=== PATIENT | female | born 1965 ===

== ENCOUNTER 2020-10-24 06:06 | Outpatient (CLI) | payer OTHER ==
[~2020-10-24 06:06] MED LIST: D3 + K2 DOTS 11 EACH PO
[2020-10-24] MEDS ORDERED: ULTRAM50 MG PO (11:48)
== END 2020-10-24 15:00 | disposition home or self-care (01) ==
LOC: LAB 06:06
PROVIDERS: ATTEND Surgery
DX: Z20.828 Contact with and (suspected) exposure to other viral communicable diseases (principal)

== ENCOUNTER 2020-10-24 06:25 | Day surgery (SDC) | payer OTHER ==
[2020-10-24] MEDS ORDERED: ULTRAM50 MG PO (11:48)
== END 2020-10-24 14:45 | disposition home or self-care (01) ==
LOC: CIR.AMB 06:25
PROVIDERS: ATTEND Surgery
DX: D35.1 Benign neoplasm of parathyroid gland (principal); Z20.822 Contact with and (suspected) exposure to COVID-19